=== PATIENT | female | born 1990 | race Caucasian/White ===

== ENCOUNTER 2018-10-17 13:30 | Emergency (ER) | payer OTHER ==
[~2018-10-17] VITALS: Ht 165.1 cm; Wt 83.2 kg
--- NOTE | 2018-10-17 14:38 | REP ---
Left lower extremity Duplex Doppler venous ultrasound: Real time compression and duplex Doppler interrogation of the left lower extremity deep venous system is performed. The left common femoral, superficial femoral and popliteal veins are fully compressible with transducer pressure and demonstrate normal spontaneous and phasic flow, without evidence of deep venous thrombosis. Impression: No evidence of deep venous thrombosis of the left lower extremity femoral popliteal venous system. Electronically Signed by Jerad Carrasco MD 10/17/2018 02:30 P
[2018-10-17 14:46] LABS: BLOOD UREA NITROGEN 5 MG/DL (7-18); CREATININE FOR GFR 0.54 MG/DL (0.55-1.30); GLOMERULAR FILTRATION RATE > 60.0 (>60); GLUCOSE, FASTING 89 MG/DL (70-100)
[2018-10-17 14:47] LABS: CALCIUM LEVEL 8.8 MG/DL (8.5-10.1); CARBON DIOXIDE LEVEL 25 MEQ/L (21-32); CHLORIDE LEVEL 107 MEQ/L (98-107); POTASSIUM SERUM 3.9 MEQ/L (3.5-5.1); SODIUM LEVEL 139 MEQ/L (136-145)
[2018-10-17 15:00] VITALS: BP 97/52
== END 2018-10-17 15:10 | disposition home or self-care (01) ==
LOC: M ED 13:30
DX: S86.112A Strain of other muscle(s) and tendon(s) of posterior muscle group at lower leg level, left leg, initial encounter (principal); X58.XXXA Exposure to other specified factors, initial encounter; Y92.89 Other specified places as the place of occurrence of the external cause; Z88.8 Allergy status to other drugs, medicaments and biological substances; Z91.048 Other nonmedicinal substance allergy status

== ENCOUNTER 2018-11-21 20:37 | Outpatient (CLI) | payer OTHER ==
[~2018-11-21] VITALS: Ht 165.1 cm; Wt 84.1 kg
[2018-11-21 20:54] VITALS: BP 109/67
[2018-11-21] MEDS ORDERED: ZANTTAB PO (21:19)
[2018-11-21] MEDS ORDERED: ZOFR4TAB16 PO (21:19)
[2018-11-21 21:47] LABS: BASO % 0.2 % (0.0-1.0); EOS # 0.1 10^3/uL (0.0-0.50); EOS % 0.6 % (0.0-3.0); HEMATOCRIT 32.5 % (36.0-47.0); HEMOGLOBIN 10.9 g/dl (12.0-15.5); LYMPH # 3.1 10^3/uL (1.5-6.5); LYMPH % 24.6 % (24.0-44.0); MEAN CORPUSCULAR HEMOGLOBIN 29.1 pg (27.0-33.0); MEAN CORPUSCULAR HGB CONC 33.5 g/dl (32.0-36.5); MEAN CORPUSCULAR VOLUME 86.9 fl (80.0-96.0); MONO # 0.8 10^3/uL (0.0-0.8); NEUTROPHILS # 8.5 10^3/uL (1.8-7.7); NEUTROPHILS % 67.6 % (36.0-66.0); PLATELET COUNT, AUTOMATED 198 10^3/uL (150-450); RED BLOOD COUNT 3.74 10^6/uL (4.00-5.40); WHITE BLOOD COUNT 12.6 10^3/uL (4.0-10.0)
--- NOTE | 2018-11-22 06:54 | HPE ---
DATE OF ADMISSION: 11/21/2018 27-year-old lady 4, para 2, abortio 1, last menstrual period (LMP) 05/19/2018, estimated date of confinement (EDC) 02/23/2019. She is at 26 and 5 weeks of gestation. She fell over the couch yesterday at a barbecue at 11/20/2018 at noon. She has had no contractions, no vaginal loss. kick chart is normal but she came for evaluation. PAST HISTORY: June 2014 at 41 weeks, section, male 7 pounds 4 ounces. Induction of labor, nonreassuring heart tones, at 10 weeks spontaneous . November 2015, repeat lower transverse section male 7 pounds 10 ounces, she went into spontaneous labor before her scheduled section. Risk factors is she has PCOS, obese with a BMI of 30.72, gastroesophageal reflux disease (GERD), and she has got an AGDM1, possibly an AGDM2 with a 1-hour a 50 gram load of 160. LABS: AB positive. HIV negative. Hep negative. RPR negative. Rubella immune. Varicella immune. Pap normal. Urine negative. Gonorrhea and chlamydia negative. 1-hour glucose initially was 112 for a 1 hour 50 gram load was 160. EXAMINATION: No acute distress. Symphysis fundus height is appropriate. Nontender uterus. Four quadrant bowel sounds are noted. No vaginal bleeding or discharge. Betke Kleihauer is negative. Hemoglobin, hematocrit and platelets are within normal limits. Category 1 strip on the nonstress. Ultrasound performed at the bedside JOSE JUAN was 10.89 in all three quadrants, vertex presenting. heart was 160 four limb movement and spontaneous respirations were noted. Urine was 1.025, pH 5, 250 of blood. Temperature 98.7, pulse 102, respirations 16 and blood pressure 109/67. The rest the examination is unremarkable. She is normocephalic, atraumatic. Neck full range of motion. Pupils equal and reactive to light. Distal pulses symmetric. No evidence of deep vein thrombosis (DVT), pulmonary embolism (PE), or superficial phlebitis. No wheezes or rhonchi. No CVA tenderness. Appropriate symphysis fundus height. She has an is incisional scar from her two previous sections. She has no rashes, lesions or pruritus. No arthralgia or myalgia. No joint pain. No complaint of cough, wheeze, or shortness of breath or dyspnea on exertion. No bleeding. Neuro complete. No incontinency, urgency or frequency. No nausea, vomiting, diarrhea or constipation. Diabetic issues presently she is an AGDM2. No gyne history. Past medical history and surgical history is noncontributory. Family history is noncontributory. She does not smoke, drink abuse drugs. She is to a soldier. No domestic violence. In summary we have a 28 and 6 who fell more than 24 hours ago with no consequence, came for evaluation, has an appointment tomorrow. Precautions were given, increasing fluids, pelvic rest of the present time and keep the appointment tomorrow at [address] Soni. All questions were answered. Patient was discharged undelivered. MARISSA
== END 2018-11-21 23:04 | disposition home or self-care (01) ==
LOC: M LDO 20:37
PROVIDERS: ATTEND Obstetrics & Gynecology
DX: O99.89 Other specified diseases and conditions complicating pregnancy, childbirth and the puerperium (principal); M54.5 Low back pain; W08.XXXA Fall from other furniture, initial encounter; Y92.89 Other specified places as the place of occurrence of the external cause; Y93.89 Activity, other specified; Y99.8 Other external cause status; Z3A.26 26 weeks gestation of pregnancy
CPT/HCPCS: 36415; 76815; 85025; 85460; G0378; G0463

== ENCOUNTER 2019-01-20 12:30 | Outpatient (CLI) | payer OTHER ==
[~2019-01-20] VITALS: Ht 165.1 cm; Wt 82.6 kg
[~2019-01-20 12:30] MED LIST: ZANT150T40 PO; ZOFR4TAB16 PO
[2019-01-20] MEDS ORDERED: MAPA500T2 PO (13:01)
== END 2019-01-20 13:44 | disposition home or self-care (01) ==
LOC: M LDO 12:30
PROVIDERS: ATTEND Advanced Practice Midwife
DX: O26.893 Other specified pregnancy related conditions, third trimester (principal); Z3A.35 35 weeks gestation of pregnancy; O99.343 Other mental disorders complicating pregnancy, third trimester; O99.513 Diseases of the respiratory system complicating pregnancy, third trimester; O99.213 Obesity complicating pregnancy, third trimester
CPT/HCPCS: 59025; G0378; G0463

== ENCOUNTER 2019-01-29 17:28 | Outpatient (CLI) | payer OTHER ==
[~2019-01-29] VITALS: Ht 165.1 cm; Wt 83.6 kg
[~2019-01-29 17:28] MED LIST changes: +MAPA500T2 PO
[2019-01-29] MEDS ORDERED: ZANT150T40 PO (18:02)
[2019-01-29] MEDS ORDERED: METF500T13 PO (18:02)
[2019-01-29 18:06] VITALS: BP 125/70
--- NOTE | 2019-01-29 18:56 | IPNPDOC ---
Text Note Date of Service The patient was seen on 01/29/19. NOTE 28YO at 36w3d by sure LMP c/w 6wk US, here c/o LOF since last tuesday and decreased movement since lunch today. Last felt good movement around 11 this morning. Since being in triage has felt several movements. Describes leakage of clear fluid since Tuesday. Cramping on and off since last night. No vb, urinary symptoms, fevers, abd pain, vaginal itching/burning. PNC c/b A2GDM on metformin PMH PP depression, obesity, childhood asthma OBHx - CS x2, SAB x1. Scheduled for RLTCS/BTL on Aug GYNHx non-contrib Meds PNV, metformin, zantac, zoloft ALL benadryl, adhesive Vitals wnl Gen WDWN, NAD. Resting comfortably in bed Abd soft non-tender (Chap RN Oriana) Spec: cervix closed, neg pooling/valsalva. No bleeding Ferning/nitrazine negative NST: overall reassuring with mod sahil, pos accels, one decel during repositioning that spontaneously recovered [place]: irreg ctx TAUS: SIUP, cephalic, +FCA, +FM, +breathing, MVP 5.8cm. BPP 8/8 A/P: False labor, no e/o SROM or labor with neg nitrazine/ferning and cervix closed on speculum. DFM, reassuring status overall with a single decel during repositioning but modified BPP 8/8. Given her status and modified BPP 8/8, no indication for delivery currently. -Return precautions discussed -Continue all meds -Keep f/u appts this week Tue/ -RLTCS/BTL scheduled for Jan -Med rec completed MD BERE Finn TONI M. MD Jan 29, 2019 18:56
== END 2019-01-29 18:49 | disposition home or self-care (01) ==
LOC: M LDO 17:28
PROVIDERS: ATTEND General Practice
DX: O47.03 False labor before 37 completed weeks of gestation, third trimester (principal); O36.8130 Decreased fetal movements, third trimester, not applicable or unspecified; Z3A.36 36 weeks gestation of pregnancy
CPT/HCPCS: 59025; 76815; G0378; G0463

== ENCOUNTER 2019-02-11 16:26 | Outpatient (CLI) | payer OTHER ==
[~2019-02-11] VITALS: Ht 165.1 cm; Wt 83.7 kg
[~2019-02-11 16:26] MED LIST changes: +METF500T13 PO
[2019-02-11 16:47] VITALS: BP 116/64
[2019-02-11] MEDS ORDERED: WELL100T2 PO (16:49)
--- NOTE | 2019-02-12 08:17 | HPE ---
DATE OF ADMISSION: This is a 27-year-old 4, para 2, abortio 1, last menstrual period (LMP) 05/19/2018, estimated date of confinement (EDC) 02/23/2019, has had no movement since last evening, came in for assessment. Her risk factors is she has had two previous sections, She is a gestational diabetes mellitus (GDM) 2 on metformin, Methicillin-resistant Staphylococcus aureus (MRSA) positive times two, body mass index (BMI) of 30.72 and she had a history of depression on Zoloft. PAST HISTORY: 1. 2014 at 41 weeks, section, male 7 pounds 4 ounces, nonreassuring heart tones after induction of labor. 2. 2011 at 10 weeks, spontaneous . 3. 2016 repeat lower section at 39 weeks, male 7 pounds 10 ounces. LABORATORIES: Labs are AB positive. HIV negative. Hep negative. RPR negative. Rubella immune. Varicella immune. Urine negative. Gonorrhea and chlamydia negative. 1-hour glucose on the early 12-week visit was 112. At the 28 week visit it was 160. Her 3-hour GTT her fasting was 95, her 1 hour was 215, her 2-hour was 185 and at 3 hours 120. She is Group B Streptococcus (GBS) negative. On examination no acute distress. Category 1 strip. No contractions, 38 weeks, symphysis fundus height, four quadrant bowel sounds are noted. No vaginal loss or bleeding. Cervix is posterior, 1 cm thick, -3 station with unengaged head. Her blood pressure 116/64, respirations are 18, pulse is 95 and temperature 97.5. Urine 1.005, pH 7, negative. Our plan is to do an NST, followup appointment at the office. She has repeat section on February 19. She has no indication at present time for immediate section. Precautions were given and instructions to bring her passport when she comes. The patient was discharged undelivered. All questions were answered.
[2019-02-12] MEDS ORDERED: BUPR15TA PO (10:06)
== END 2019-02-11 17:30 | disposition home or self-care (01) ==
LOC: M LDO 16:26
PROVIDERS: ATTEND Obstetrics & Gynecology
DX: O36.8130 Decreased fetal movements, third trimester, not applicable or unspecified (principal); Z3A.38 38 weeks gestation of pregnancy
CPT/HCPCS: 59025; G0378; G0463

== ENCOUNTER 2019-02-19 05:55 | Inpatient (IN) | payer OTHER ==
[2019-02-19] VITALS (8 sets, daily range): BP systolic 100–129; BP diastolic 54–79
[~2019-02-19] VITALS: Ht 165.1 cm; Wt 83.4 kg
[~2019-02-19 05:55] MED LIST changes: +BUPR15TA PO; +WELL100T2 PO
[2019-02-19] MEDS ORDERED: ZOFR4TAB16 PO (06:28)
[2019-02-19] MEDS ORDERED: LACTATED RINGER'S 1000 ML IV STA (07:08)
[2019-02-19 07:19] LABS: HEMATOCRIT 34.8 % (36.0-47.0); HEMOGLOBIN 11.7 g/dl (12.0-15.5); MEAN CORPUSCULAR HEMOGLOBIN 28.5 pg (27.0-33.0); MEAN CORPUSCULAR HGB CONC 33.6 g/dl (32.0-36.5); MEAN CORPUSCULAR VOLUME 84.9 fl (80.0-96.0); PLATELET COUNT, AUTOMATED 183 10^3/uL (150-450); WHITE BLOOD COUNT 11.6 10^3/uL (4.0-10.0)
[2019-02-19] MEDS ORDERED: ceFAZolin SOD 2 GM in IV 1 EA IV ONE (08:00)
[2019-02-19] MEDS ORDERED: BICITRA 30ML SOLN UDC PO ONE (08:00)
[2019-02-19] MEDS ORDERED: ONDANSETRON 4MG/2ML VIAL (J2405) As Ordered ONE ×2 (08:12→10:25)
[2019-02-19] MEDS ORDERED: OXYTOCIN INJ 10 UNITS/ML VIAL (J2590) As Ordered ONE (08:12)
[2019-02-19] MEDS ORDERED: dexameTHASONE 4 MG/ML 1ML VIAL (J1100) As Ordered ONE (08:12)
[2019-02-19] MEDS ORDERED: KETOROLAC 60 MG/2 ML VIAL (J1885) As Ordered ONE (08:12)
[2019-02-19] MEDS ORDERED: fentaNYL 100 MCG/2 ML INJECTION (J3010) As Ordered ONE (08:13)
[2019-02-19] MEDS ORDERED: MORPHINE PRES-FREE INJ 10 MG/10 ML VIAL (J2274) As Ordered ONE (08:13)
[2019-02-19] MEDS ORDERED: ONDANSETRON 4MG/2ML VIAL (J2405) IV PRN ×2 (08:35→10:15)
[2019-02-19] MEDS ORDERED: diphenhydrAMINE INJ 50MG/ML VIAL (J1200) IV PRN ×2 (08:35→10:15)
[2019-02-19] MEDS ORDERED: NALOXONE INJ 0.4 MG/1 ML VIAL (J2310) IV PRN ×2 (08:35)
[2019-02-19] MEDS ORDERED: NALBUPHINE HCL 10 MG/ML AMP (J2300) IV PRN ×2 (08:35→10:15)
[2019-02-19] MEDS ORDERED: buPROPion **XL** TABLET 150MG (WELLBUTRIN XL) PO SCH (09:00)
[2019-02-19] MEDS ORDERED: ePHEDrine SULFATE 25 MG/5 ML(5MG/ML) SYRINGE As Ordered ONE (09:08)
[2019-02-19] MEDS ORDERED: PHENYLephrine HCL 500 MCG/5 ML (100MCG/ML) SYRINGE (J2370) As Ordered ONE (09:08)
[2019-02-19] MEDS ORDERED: OXYTOCIN 30 UNITS IN 0.9% NaCl 500ML IV BAG (J2590) As Ordered ONE (09:47)
[2019-02-19] MEDS ORDERED: OXYTOCIN DRIP 30 UNITS in IV 1 EA IV SCH (09:47)
[2019-02-19] MEDS ORDERED: PERCOCET 5MG/325MG TAB PO PRN (10:00)
[2019-02-19] MEDS ORDERED: PROMETHAZINE 25 MG TAB PO PRN (10:00)
[2019-02-19] MEDS ORDERED: RHOGAM 300 MCG (1500 IU) INJ (J2790) IM SCH (10:00)
[2019-02-19] MEDS ORDERED: MEASLES,MUMPS,RUBELLA VACCINE INJ (MMR-II) (90707) SC SCH (10:00)
[2019-02-19] MEDS ORDERED: LR 1,000 ML IV SCH (10:15)
[2019-02-19] MEDS ORDERED: fentaNYL 100 MCG/2 ML INJECTION (J3010) IV PRN (10:15)
[2019-02-19] MEDS: METOCLOPRAMIDE INJ 10MG/2ML VIAL (J2765) IV PRN ×2 (12:12→19:28)
[2019-02-19] MEDS ORDERED: SERT50TA29 PO (13:43)
[2019-02-19] MEDS ORDERED: BUPR-332 PO (13:43)
[2019-02-19] MEDS: KETOROLAC 30 MG/ML VIAL (J1885) IV SCH ×2 (14:34→21:04)
[2019-02-19] MEDS: buPROPion **XL** TABLET 150MG (WELLBUTRIN XL) PO SCH (21:03)
[2019-02-20 02:00] VITALS: BP 100/50
[2019-02-20] MEDS: KETOROLAC 30 MG/ML VIAL (J1885) IV SCH (02:21)
[2019-02-20 05:57] VITALS: BP 106/58
[2019-02-20 07:26] LABS: HEMATOCRIT 28.9 % (36.0-47.0); MEAN CORPUSCULAR HEMOGLOBIN 28.3 pg (27.0-33.0); MEAN CORPUSCULAR HGB CONC 32.5 g/dl (32.0-36.5); PLATELET COUNT, AUTOMATED 134 10^3/uL (150-450); RED BLOOD COUNT 3.32 10^6/uL (4.00-5.40)
--- NOTE | 2019-02-20 07:41 | IPNPDOC ---
Progress Note Date of Service: Feb 20, 2019 Progress Note Crystal is a 28 yo female who is POD#1 s/p uncomplicated, scheduled RLTCS with BTL yesterday morning. She is currently recovering on the oneill. She had some nausea and vomiting last night after eating [employer] but otherwise did well overnight. Crystal reports feeling better this AM. Nausea has improved. She was able to tolerate toast this morning without vomiting. Her pain is well controlled. She is ambulating without issues. Maldonado catheter still in place. Vitals - VSS, normotensive, afebrile, non tachycardic General - AAOX3, sitting up in bed, NAD Abdomen - Fundus firm at U-2. No fundal tenderness. Bandage removed over incision. Incision is clean/dry/intact. Steri strips in place. minimal tenderness to palpation. Extremities - SCDs in place. No edema Urine output - Borderline low, likely secondary to 2000ml emesis yesterday afternoon after eating Cony[employer]. ~250ml of urine in maldonado bag at bedside this AM. Labs: Post op H/H pending. Crystal is doing well this and is making an appropriate recovery. Nausea has improved. Continue regular diet, ambulation, and IS use. Continue routine care. Will order abdominal binder. Remove maldonado and monitor for DTV this AM. Anticipate DC home tomorrow. Yvonne Cerna DO VS, I&O, 24H, Fishbone Vital Signs/I&O Vital Signs Date Time Temp Pulse Resp B/P (MAP) Pulse Ox O2 Delivery O2 Flow Rate FiO2 02/20/19 05:57 99.7 85 16 106/58 (74) 97 I&O- Last 24 Hours up to 6 AM 02/20/19 06:00 Intake Total 4000 ml Output Total 3575 ml Balance 425 ml Laboratory Data 24H LABS Laboratory Tests 2 02/19/19 10:13: Serology Scanned Report Hepatitis B Testing CBC/BMP YVONNE CERNA DO Feb 20, 2019 07:41
[2019-02-20 07:51] LABS: HEMOGLOBIN 9.4 g/dl (12.0-15.5)
[2019-02-20] MEDS: PRENATAL VITAMINS CHEWABLE TABLET PO SCH (08:22)
[2019-02-20] MEDS: buPROPion **XL** TABLET 150MG (WELLBUTRIN XL) PO SCH ×2 (08:22→20:57)
[2019-02-20 10:01] VITALS: BP 107/61
[2019-02-20] MEDS: IBUPROFEN 800 MG TAB PO SCH ×2 (10:55→18:48)
[2019-02-20 14:19] VITALS: BP 111/57
[2019-02-20] MEDS ORDERED: DOCUSATE SODIUM 100 MG CAP PO PRN (15:30)
--- NOTE | 2019-02-20 17:08 | RO ---
DATE OF PROCEDURE: 02/19/2019 PREPROCEDURE DIAGNOSIS: History of section times two, no desire for trial of labor after (TOLAC), and satisfied parity. POSTPROCEDURE DIAGNOSIS: History of section times two, no desire for trial of labor after , and satisfied parity. PROCEDURE: Repeat low transverse section with bilateral tubal ligation. SURGEON: Dr. Carlos A Soni LOAN APPROVER: Marlyn Dowell CNM, whose assistance with visualization, retraction, and delivery of the baby was essential to the case. ANESTHESIA: Spinal. FLUIDS: 1300 mL lactated Ringer's (LR). URINE OUTPUT: 100 mL. ESTIMATED BLOOD LOSS: 500 mL. COMPLICATIONS: None. ANTIBIOTICS: 2 grams of Ancef 30 minutes before skin incision. OPERATIVE FINDINGS: A viable female found and delivered in direct occiput posterior (OP) presentation. scores were 9 and 9 and the weight was 3600 grams or 7 pounds 15 ounces. DESCRIPTION OF PROCEDURE: The risks, benefits, indications and alternatives of the procedure were reviewed with the patient and informed consent was obtained. The patient was taken to the operating room where spinal anesthesia was obtained without difficulty. She was then prepped and draped in the usual sterile fashion in the dorsal supine position. A surgical time-out was then performed in which the patient's identify and planned procedure were verified with the operative team. A Cummings catheter was placed previously to drain the bladder. A Pfannenstiel skin incision was then made with a scalpel and carried through to the underlying layer of fascia using Bovie electrocautery. The fascia was incised in the midline, and the incision was extended laterally with Whitt scissors. The superior aspect of the fascial incision was grasped with Livia clamps, elevated, and the underlying rectus muscles were dissected off with a scalpel and with Whitt scissors. Attention was then turned to the inferior aspect of this incision, which in a similar fashion was grasped, tented up with Livia clamps, and the rectus muscles were dissected off with Whitt scissors. The rectus muscles were then at the midline. The peritoneum was identified and entered digitally. The peritoneal incision was then extended horizontally and superiorly with good visualization of the bladder. Bladder blade was then inserted into the abdomen. The vesicouterine peritoneum was then identified and entered sharply with the scalpel. This incision was then extended laterally and a bladder flap was created digitally. The lower uterine segment was noted to be very thin. The lower uterine segment was then incised in a transverse fashion with a scalpel. The uterine incision was then extended manually. The amniotic sac was then artificially ruptured and it was productive of clear fluid. The infant was then found in cephalic direct occiput posterior (OP) presentation. The infant was then delivered through the hysterotomy site without difficulty followed by the remainder of the body. The nose and mouth were then suctioned with a bulb syringe and the cord was then doubly clamped and cut. The infant was then handed off to the awaiting pediatricians. The placenta was then removed manually. The uterus was then exteriorized and cleared of all clots and debris. The uterine incision was then repaired with #0 Monocryl suture in a running locked fashion. A second layer of #0 Monocryl was then used to imbricate the hysterotomy in a horizontal fashion. Inspection of the hysterotomy revealed excellent hemostasis. The posterior cul-de-sac was then irrigated to good effect. Attention was then turned to the patient's fallopian tubes, which were identified bilaterally. The right fallopian tube was then grasped at the isthmic portion with a Lowndes clamp and the underlying mesosalpinx was dissected away using Bovie electrocautery. Using a #0 plain gut suture, the fallopian tube segment was then suture ligated on both sides, and the midline portion of the fallopian tube segment was then transected, amputated, and sent to pathology. An identical procedure was then performed on the patient's left fallopian tube. Thus, tubal sterilization was completed via the [place] method. Inspection of the operative sites of the fallopian tubes revealed excellent hemostasis. The uterus was then returned to the abdomen, and the hysterotomy was again inspected and found to be hemostatic. The fallopian tube operative sites were inspected as well and were also hemostatic. The paracolic gutters were then inspected and cleared of all clots and debris. The bladder blade was then removed from the abdomen. The rectus muscles were then loosely approximated using #3-0 Vicryl suture. The fascia was then closed with #0 Vicryl suture in a running fashion. The subcutaneous fat was then closed with #3-0 Vicryl suture in a running fashion. The skin was then closed with #4-0 Monocryl suture in a subcuticular fashion. The incision was then dressed with Steri-Strips and a pressure dressing was applied. At the completion of the case, a bimanual exam was performed, which revealed good uterine tone and minimal vaginal bleeding. The patient tolerated the procedure well. Sponge, lap, instrument and needle counts were correct times three. The patient was taken to the recovery room in stable condition. MARISSA
[2019-02-20 18:00] VITALS: BP 110/55
[2019-02-20] MEDS: PERCOCET 5MG/325MG TAB PO PRN (18:04)
[2019-02-20 22:00] VITALS: BP 97/52
[2019-02-21 02:00] VITALS: BP 115/70
[2019-02-21] MEDS: PERCOCET 5MG/325MG TAB PO PRN ×2 (02:09→08:36)
[2019-02-21] MEDS: IBUPROFEN 800 MG TAB PO SCH ×2 (03:01→10:59)
[2019-02-21 06:00] VITALS: BP 105/58
--- NOTE | 2019-02-21 07:13 | OBDS ---
[facility] Obstetrical Discharge Sum. Obstetrical Discharge Summary Date: Feb 21, 2019 Time: 06:58 : 4 Term: 3 Pre-term: 0 Abortions: 1 Livin VDRL: Non-Reactive Rh: Positive Rubella: Immune Delivery 19 February, RLTCS with tubal ligation Infant Sex: Female Anesthesia: Regional Anesthesia Episiotomy n/a A/P, Post Course List any complications Admission diagnosis: h/o prior , satisfied parity, term gestation. Discharge diagnosis: agustina, s/p RLTCS with Bilateral tubal ligation Condition at Discharge: stable Discharge Instructions: Keep wound clean and dry, remove steristrips if they don't fall off in 2 weeks. Activity: walking ok. Avoid lifting anything greater than 20lbs for 1 month after surgery. vaginal rest for 6 weeks. no tub baths for 1 month after surgery. Showers are OK. No swimming for 1 month after surgery. Diet: regular Medications: Available for pickup driver at the [facility] oxycodon/acetaminophen 5/325mg take 1-2 tabs by mouth as needed every 4-6 hours for pain not controlled by ibuprofen. do not take tylenol at same time as this medication because it also contains acetaminophen. Colace: 100mg take one tablet a needed twice a day to prevent constipation ibuprofen 800mg take one table with breakfast, lunch, and dinner first week after surgery then use as needed. ever 8 hours for pain. Follow-up: [normal 6-8 week /postoperative visit], october schedule 2 week postop wound check as desired with Dr. Soni Other: N/A YVONNE CHARLES MD Feb 21, 2019 07:13
--- NOTE | 2019-02-21 07:40 | IPNPDOC ---
Progress Note Date of Service: Feb 21, 2019 Day#: 2 Progress Note SUBJECT: pt is a 28-year-old 4 now Para 3-0-1-3 status post uncomplica darlin RLTCS with tubal ligation at 39+ weeks' on 19 February 2019 of a [female] [7] pounds [15] ounces doing well /postoperative day # [2]. She has been ambulating, voiding spontaneously without issue and tolerating regular diet. Bottle feeding without issue. Breasts bilateral full. no erythema or focal tenderness, we reviewed engorgement precautions/treatment. Reports lochia is [normal]. Patient is ambulating well. Denies any pain. Voiding and stooling without difficulty. OBJECTIVE: VITAL SIGNS: Within normal limits, afebrile. Alert and oriented times three. Breath sounds clear to auscultation. Heart rate: Regular rate and rhythm, no murmurs, rubs or gallops. Abdomen: Fundus firm at U-3. Soft, NTTP. [Minimal] lochia. ASSESSMENT: pt is a 28-year-old 4 now Para 3-0-1-3 status post uncomplicated RLTCS with tubal ligation doing well on day [2]. Vitals within normal limits, afebrile, hemodynamically stable with no evidence of infection. PLAN: 1. Discharge to home today. 2. roxicet and Motrin for pain. 3. Encourage ambulation-bottle feeding. 4. tubal ligation for contraception. 5. Routine PP visit in 6 -8weeks in clinic. May have a 2week postoperative wound check with Dr. Yvonne Soni. 6. Discussed return precautions at length. wound care. and engorgement treatment/prevention VS, I&O, 24H, Fishbone Vital Signs/I&O Vital Signs Date Time Temp Pulse Resp B/P (MAP) Pulse Ox O2 Delivery O2 Flow Rate FiO2 02/21/19 06:00 99.3 91 16 105/58 (74) 98 I&O- Last 24 Hours up to 6 AM 02/21/19 05:59 Output Total 1275 ml Balance -1275 ml YVONNE CHARLES MD Feb 21, 2019 07:40
[2019-02-21] MEDS: buPROPion **XL** TABLET 150MG (WELLBUTRIN XL) PO SCH (08:36)
[2019-02-21] MEDS: PRENATAL VITAMINS CHEWABLE TABLET PO SCH (08:36)
== END 2019-02-21 11:45 | disposition home or self-care (01) | DRG 785 ==
LOC: M LDI 05:55 → M OBS 12:10
PROVIDERS: ADMIT Obstetrics & Gynecology; ATTEND Obstetrics & Gynecology
PROC: 0UB70ZZ Excision of Bilateral Fallopian Tubes, Open Approach (ICD-10-PCS; 2019-02-19)
PROC: 10D00Z1 Extraction of Products of Conception, Low, Open Approach (ICD-10-PCS; principal; 2019-02-19 08:30)
DX: O34.211 Maternal care for low transverse scar from previous cesarean delivery (principal); Z3A.39 39 weeks gestation of pregnancy; Z37.0 Single live birth; Z30.2 Encounter for sterilization

== ENCOUNTER 2020-09-23 15:28 | Outpatient (CLI) | payer OTHER ==
[~2020-09-23] VITALS: Ht 165.1 cm; Wt 90.5 kg
[~2020-09-23 15:28] MED LIST changes: +BUPR-332 PO; +SERT50TA29 PO; +methylPREDNISolone 1,000 MG, VIAL MATE ADAPTER 1 EACH in NS 250 ML IV ONE
[2020-09-23 15:49] VITALS: BP 124/77
[2020-09-23 17:01] VITALS: BP 140/75
== END 2020-09-23 17:03 | disposition home or self-care (01) ==
LOC: M INFU 15:28
PROVIDERS: ATTEND Psychiatry & Neurology Neurology
DX: G35 Multiple sclerosis (principal); Z88.8 Allergy status to other drugs, medicaments and biological substances; Z91.048 Other nonmedicinal substance allergy status
CPT/HCPCS: 96365; J2930

== ENCOUNTER 2020-09-24 15:11 | Outpatient (CLI) | payer OTHER ==
[~2020-09-24] VITALS: Ht 165.1 cm; Wt 90.0 kg
[~2020-09-24 15:11] MED LIST changes: -methylPREDNISolone 1,000 MG, VIAL MATE ADAPTER 1 EACH in NS 250 ML IV ONE
[2020-09-24 15:26] VITALS: BP 109/59
[2020-09-24] MEDS ORDERED: methylPREDNISolone 1,000 MG, VIAL MATE ADAPTER 1 EACH in NS 250 ML IV ONE (15:30)
[2020-09-24 16:25] VITALS: BP 111/60
== END 2020-09-24 16:24 | disposition home or self-care (01) ==
LOC: M INFU 15:11
PROVIDERS: ATTEND Psychiatry & Neurology Neurology
DX: G35 Multiple sclerosis (principal)
CPT/HCPCS: 96365; J2930

== ENCOUNTER 2020-09-25 15:35 | Outpatient (CLI) | payer OTHER ==
[~2020-09-25] VITALS: Ht 165.1 cm; Wt 90.0 kg
[~2020-09-25 15:35] MED LIST changes: +methylPREDNISolone 1,000 MG, VIAL MATE ADAPTER 1 EACH in NS 250 ML IV ONE
[2020-09-25 15:40] VITALS: BP 133/74
== END 2020-09-25 16:52 | disposition home or self-care (01) ==
LOC: M INFU 15:35
PROVIDERS: ATTEND Psychiatry & Neurology Neurology
DX: G35 Multiple sclerosis (principal); Z88.8 Allergy status to other drugs, medicaments and biological substances; Z91.048 Other nonmedicinal substance allergy status
CPT/HCPCS: 96365; J2930

== ENCOUNTER 2020-09-26 15:40 | Outpatient (CLI) | payer OTHER ==
[~2020-09-26] VITALS: Ht 165.1 cm; Wt 90.0 kg
[2020-09-26 15:50] VITALS: BP 134/86
[2020-09-26 17:04] VITALS: BP 126/82
== END 2020-09-26 17:05 | disposition home or self-care (01) ==
LOC: M INFU 15:40
PROVIDERS: ATTEND Psychiatry & Neurology Neurology
DX: G35 Multiple sclerosis (principal); Z88.8 Allergy status to other drugs, medicaments and biological substances; Z91.048 Other nonmedicinal substance allergy status
CPT/HCPCS: 96365; J2930

== ENCOUNTER 2020-09-27 09:19 | Outpatient (CLI) | payer OTHER ==
[~2020-09-27] VITALS: Ht 165.1 cm; Wt 90.5 kg
[~2020-09-27 09:19] MED LIST changes: -methylPREDNISolone 1,000 MG, VIAL MATE ADAPTER 1 EACH in NS 250 ML IV ONE
[2020-09-27 09:52] VITALS: BP 118/76
[2020-09-27] MEDS ORDERED: methylPREDNISolone 1,000 MG, VIAL MATE ADAPTER 1 EACH in NS 250 ML IV ONE (10:00)
[2020-09-27] MEDS ORDERED: ONDANSETRON 4MG/2ML VIAL As Ordered ONE (11:40)
[2020-09-27] MEDS ORDERED: ONDANSETRON 4MG/2ML VIAL IV ONE (11:40)
== END 2020-09-27 11:45 | disposition home or self-care (01) ==
LOC: M OPCLI4PV 09:19 → M MSPAV 09:20 → M OPCLI4PV 11:45
PROVIDERS: ATTEND Psychiatry & Neurology Neurology
DX: G35 Multiple sclerosis (principal); Z88.8 Allergy status to other drugs, medicaments and biological substances; Z91.048 Other nonmedicinal substance allergy status
CPT/HCPCS: 96365; 96375; J2405; J2930

== ENCOUNTER 2020-12-25 07:19 | Outpatient (CLI) | payer OTHER ==
[2020-12-25] VITALS (7 sets, daily range): BP systolic 114–133; BP diastolic 60–79
[~2020-12-25] VITALS: Ht 167.6 cm; Wt 90.0 kg
[~2020-12-25 07:19] MED LIST changes: +ACETAMINOPHEN TAB 650MG DOSE (2X325MG) PO ONE; +diphenhydrAMINE 25MG CAP PO ONE; +methylPREDNISolone 125MG 2ML VIAL IV ONE
[2020-12-25] MEDS ORDERED: OCRELIZUMAB 300 MG in NS 250 ML IV ONE (07:30)
== END 2020-12-25 11:10 | disposition home or self-care (01) ==
LOC: M INFU 07:19
PROVIDERS: ATTEND Psychiatry & Neurology Neurology
DX: G35 Multiple sclerosis (principal)
CPT/HCPCS: 96375; 96413; 96415; J2350; J2930

== ENCOUNTER 2021-03-05 13:43 | Emergency (ER) | payer OTHER ==
[~2021-03-05] VITALS: Ht 167.6 cm; Wt 81.0 kg
[~2021-03-05 13:43] MED LIST changes: -ACETAMINOPHEN TAB 650MG DOSE (2X325MG) PO ONE; -diphenhydrAMINE 25MG CAP PO ONE; -methylPREDNISolone 125MG 2ML VIAL IV ONE
[2021-03-05] MEDS ORDERED: GABA-283 (13:53)
[2021-03-05] MEDS ORDERED: DULO1CAP5 (13:53)
[2021-03-05] MEDS ORDERED: DULO1CAP6 (13:53)
[2021-03-05] MEDS ORDERED: ASPI-584 (13:53)
[2021-03-05] MEDS ORDERED: ESZO1TAB8 (13:53)
[2021-03-05] MEDS ORDERED: LORA-674 (13:53)
[2021-03-05] MEDS ORDERED: AMPH1CAP16 (13:53)
[2021-03-05] MEDS ORDERED: PROP10TA56 (13:53)
[2021-03-05] MEDS ORDERED: HYDR-4570 (13:53)
[2021-03-05 20:51] LABS: BASO # 0.1 10^3/uL (0.0-0.2); BASO % 0.5 % (0.0-1.0); EOS # 0.1 10^3/uL (0.0-0.5); EOS % 1.4 % (0.0-3.0); HEMATOCRIT 36.9 % (36.0-47.0); LYMPH # 2.5 10^3/uL (1.5-5.0); LYMPH % 27.3 % (24.0-44.0); MEAN CORPUSCULAR HGB CONC 32.5 g/dl (32.0-36.5); MEAN CORPUSCULAR VOLUME 86.2 fl (80.0-96.0); MONO # 0.8 10^3/uL (0.0-0.8); MONO % 9.1 % (2.0-8.0); NEUTROPHILS # 5.7 10^3/uL (1.5-8.5); NEUTROPHILS % 61.3 % (36.0-66.0); PLATELET COUNT, AUTOMATED 209 10^3/uL (150-450); RED BLOOD COUNT 4.28 10^6/uL (4.00-5.40); WHITE BLOOD COUNT 9.3 10^3/uL (4.0-10.0)
[2021-03-05] MEDS ORDERED: methylPREDNISolone 1,000 MG, VIAL MATE ADAPTER 1 EACH in NS 250 ML IV ONE (21:20)
[2021-03-05] MEDS ORDERED: SODIUM CHLORIDE 0.9% INJ 10 ML SYR IV PRN (21:25)
[2021-03-05 21:28] LABS: ALBUMIN 3.3 GM/DL (3.2-5.2); ALT/SGPT 20 U/L (12-78); BILIRUBIN,DIRECT < 0.1 MG/DL (0.0-0.2); BILIRUBIN,TOTAL 0.3 MG/DL (0.2-1.0); BLOOD UREA NITROGEN 11 MG/DL (7-18); C REACTIVE PROTEIN QUANTITATIV 0.42 MG/DL (0.00-0.30); CALCIUM LEVEL 8.4 MG/DL (8.5-10.1); CARBON DIOXIDE LEVEL 28 MEQ/L (21-32); CHLORIDE LEVEL 108 MEQ/L (98-107); CREATININE FOR GFR 0.69 MG/DL (0.55-1.30); FREE T4 0.97 NG/DL (0.76-1.46); GLOMERULAR FILTRATION RATE > 60.0 (>60); GLUCOSE, FASTING 94 MG/DL (70-100); MAGNESIUM LEVEL 2.2 MG/DL (1.8-2.4); POTASSIUM SERUM 3.8 MEQ/L (3.5-5.1); SODIUM LEVEL 141 MEQ/L (136-145); THYROID STIMULATING HORMONE 0.759 uIU/ML (0.358-3.740); TOTAL PROTEIN 6.3 GM/DL (6.4-8.2)
[2021-03-05] MEDS ORDERED: PROHANCE 279.3MG/ML 15ML VIAL As Ordered ONE (21:31)
--- NOTE | 2021-03-05 22:09 | REPVR ---
PROCEDURE INFORMATION: Exam: XR Chest Exam date and time: 03/05/2021 8:51 PM Age: 30 years old Clinical indication: Other: Ms flare-up; Additional info: Inc ms symptoms TECHNIQUE: Imaging protocol: XR of the chest. Views: 2 views. COMPARISON: No relevant prior studies available. FINDINGS: Tubes, catheters and devices: Right IJ central venous line terminates in the SVC. Lungs: Clear. No consolidation. Pleural spaces: No pleural effusion. No pneumothorax. Heart/Mediastinum: Unremarkable. No cardiomegaly. Bones/joints: Unremarkable. IMPRESSION: No acute findings. Electronically signed by: Sharath Borja On 03/05/2021 22:09:04 PM
--- NOTE | 2021-03-05 22:16 | REPVR ---
PROCEDURE INFORMATION: Exam: MR Head Without and With Contrast Exam date and time: 03/05/2021 9:51 PM Age: 30 years old Clinical indication: Weakness, extremity; Bilateral; Additional info: Weakness/ ? ms flare TECHNIQUE: Imaging protocol: MR of the head without and with intravenous contrast. Contrast material: PROHANCE; Contrast volume: 16 ml; Contrast route: INTRAVENOUS (IV); COMPARISON: No relevant prior studies available. FINDINGS: Brain: There are multiple linear subcortical and pericallosal T2 hyperintense white matter lesions consistent with history of multiple sclerosis. No evidence of an acute infarction. No midline shift or mass effect. No mass or abnormal contrast enhancement. Cerebral ventricles: Normal. No ventriculomegaly. Bones/joints: Unremarkable. Paranasal sinuses: Normal as visualized. No acute sinusitis. Mastoid air cells: Normal as visualized. No mastoid effusion. Soft tissues: Unremarkable. IMPRESSION: 1. Scattered white matter plaques consistent with given history of multiple sclerosis. No signs of active demyelination. 2. No acute findings. Electronically signed by: Sharath Borja On 03/05/2021 22:15:49 PM
[2021-03-05] MEDS ORDERED: ACETAMINOPHEN 500 MG TAB PO ONE (22:45)
[2021-03-05] MEDS ORDERED: PRED10TA2 PO (23:57)
[2021-03-06 00:14] VITALS: BP 129/71
== END 2021-03-06 00:15 | disposition home or self-care (01) ==
LOC: M ED 13:43
DX: G35 Multiple sclerosis (principal); R42 Dizziness and giddiness; R20.2 Paresthesia of skin; R51.9 Headache, unspecified; E11.9 Type 2 diabetes mellitus without complications; J45.909 Unspecified asthma, uncomplicated; F32.9 Major depressive disorder, single episode, unspecified; F41.9 Anxiety disorder, unspecified; Z88.8 Allergy status to other drugs, medicaments and biological substances; Z91.048 Other nonmedicinal substance allergy status; Z79.899 Other long term (current) drug therapy
CPT/HCPCS: 70553; 71046; 80048; 80076; 81001; 83605; 83735; 84439; 84443; 85025; 86140; 87040; 87798; 96365; 99284; A9576; J1642; J2930

== ENCOUNTER 2021-03-23 17:53 | Outpatient (CLI) | payer OTHER ==
[~2021-03-23 17:53] MED LIST changes: +AMPH1CAP16; +ASPI-584; +DULO1CAP5; +DULO1CAP6; +ESZO1TAB8; +GABA-283; +HYDR-4570; +LORA-674; +PRED10TA2 PO; +PROP10TA56
[2021-03-23] MEDS ORDERED: methylPREDNISolone 1,000 MG, VIAL MATE ADAPTER 1 EACH in NS 250 ML IV ONE (20:00)
[2021-03-23 20:45] VITALS: BP 102/69
[2021-03-23] MEDS ORDERED: SODIUM CHLORIDE 0.9% INJ 10 ML SYR IV PRN (22:35)
[2021-03-24 00:34] VITALS: BP 131/71
[2021-03-24] MEDS ORDERED: SODIUM CHLORIDE 0.9% INJ 10 ML SYR IV SCH (09:00)
== END 2021-03-24 00:39 | disposition home or self-care (01) ==
LOC: M OPCLI4PR 17:53 → M MSPAV 17:55 → M OPCLI4PR 03-24 00:39
PROVIDERS: ATTEND Psychiatry & Neurology Neurology
DX: G35 Multiple sclerosis (principal)
CPT/HCPCS: 96365; 96366; J1642; J2930

== ENCOUNTER 2021-03-24 11:17 | Outpatient (CLI) | payer OTHER ==
[~2021-03-24] VITALS: Ht 167.6 cm; Wt 90.0 kg
[~2021-03-24 11:17] MED LIST changes: +SODIUM CHLORIDE 0.9% INJ 10 ML SYR IV SCH
[2021-03-24 11:50] VITALS: BP 121/75
[2021-03-24] MEDS ORDERED: methylPREDNISolone 1,000 MG, VIAL MATE ADAPTER 1 EACH in NS 250 ML IV ONE (12:00)
[2021-03-24 12:50] VITALS: BP 132/81
[2021-03-24] MEDS ORDERED: SODIUM CHLORIDE 0.9% INJ 10 ML SYR IV PRN (12:50)
== END 2021-03-24 13:00 | disposition home or self-care (01) ==
LOC: M INFU 11:17
PROVIDERS: ATTEND Psychiatry & Neurology Neurology
DX: G35 Multiple sclerosis (principal)
CPT/HCPCS: 96365; J1642; J2930

== ENCOUNTER 2021-03-25 13:16 | Outpatient (CLI) | payer OTHER ==
[~2021-03-25] VITALS: Ht 167.6 cm; Wt 90.0 kg
[~2021-03-25 13:16] MED LIST changes: -SODIUM CHLORIDE 0.9% INJ 10 ML SYR IV SCH; +methylPREDNISolone 1,000 MG, VIAL MATE ADAPTER 1 EACH in NS 250 ML IV ONE
[2021-03-25 13:35] VITALS: BP 133/70
[2021-03-25] MEDS ORDERED: SODIUM CHLORIDE 0.9% INJ 10 ML SYR IV PRN (14:10)
[2021-03-25] MEDS: SODIUM CHLORIDE 0.9% INJ 10 ML SYR IV SCH ×2 (14:29→14:30)
[2021-03-25 14:35] VITALS: BP 122/65
== END 2021-03-25 14:50 | disposition home or self-care (01) ==
LOC: M INFU 13:16
PROVIDERS: ATTEND Psychiatry & Neurology Neurology
DX: G35 Multiple sclerosis (principal)
CPT/HCPCS: 96365; 96523; J1642; J2930

== ENCOUNTER 2021-03-26 14:53 | Outpatient (CLI) | payer OTHER ==
[~2021-03-26] VITALS: Ht 167.6 cm; Wt 90.0 kg
[~2021-03-26 14:53] MED LIST changes: +SODIUM CHLORIDE 0.9% INJ 10 ML SYR IV PRN; -methylPREDNISolone 1,000 MG, VIAL MATE ADAPTER 1 EACH in NS 250 ML IV ONE
[2021-03-26 14:55] VITALS: BP 121/78
[2021-03-26] MEDS ORDERED: methylPREDNISolone 1,000 MG, VIAL MATE ADAPTER 1 EACH in NS 250 ML IV ONE (15:30)
[2021-03-26 16:15] VITALS: BP 135/80
[2021-03-27] MEDS ORDERED: SODIUM CHLORIDE 0.9% INJ 10 ML SYR IV SCH (09:00)
== END 2021-03-26 16:20 | disposition home or self-care (01) ==
LOC: M INFU 14:53
PROVIDERS: ATTEND Psychiatry & Neurology Neurology
DX: G35 Multiple sclerosis (principal)
CPT/HCPCS: 96365; 96523; J1642; J2930

== ENCOUNTER 2021-03-27 14:56 | Outpatient (CLI) | payer OTHER ==
[~2021-03-27] VITALS: Ht 167.6 cm; Wt 90.0 kg
[~2021-03-27 14:56] MED LIST changes: +SODIUM CHLORIDE 0.9% INJ 10 ML SYR IV SCH; +methylPREDNISolone 1,000 MG, VIAL MATE ADAPTER 1 EACH in NS 250 ML IV ONE
[2021-03-27 15:12] VITALS: BP 127/79
[2021-03-27 16:20] VITALS: BP 135/80
== END 2021-03-27 16:20 | disposition home or self-care (01) ==
LOC: M INFU 14:56
PROVIDERS: ATTEND Psychiatry & Neurology Neurology
DX: G35 Multiple sclerosis (principal)
CPT/HCPCS: 96365; J1642; J2930

== ENCOUNTER 2021-04-15 15:56 | Outpatient (CLI) | payer OTHER ==
[~2021-04-15] VITALS: Ht 167.6 cm; Wt 90.0 kg
[2021-04-15 15:20] VITALS: BP 141/91
[~2021-04-15 15:56] MED LIST changes: -SODIUM CHLORIDE 0.9% INJ 10 ML SYR IV PRN; -SODIUM CHLORIDE 0.9% INJ 10 ML SYR IV SCH
[2021-04-15] MEDS ORDERED: SODIUM CHLORIDE 0.9% INJ 10 ML SYR IV PRN (16:35)
[2021-04-15 17:00] VITALS: BP 111/67
[2021-04-16] MEDS ORDERED: SODIUM CHLORIDE 0.9% INJ 10 ML SYR IV SCH (09:00)
== END 2021-04-15 17:00 | disposition home or self-care (01) ==
LOC: M INFU 15:56
PROVIDERS: ATTEND Psychiatry & Neurology Neurology
DX: G35 Multiple sclerosis (principal); Z88.8 Allergy status to other drugs, medicaments and biological substances
CPT/HCPCS: 96365; 96523; J1642; J2930

== ENCOUNTER 2021-04-16 11:03 | Outpatient (CLI) | payer OTHER ==
[~2021-04-16] VITALS: Ht 167.6 cm; Wt 90.0 kg
[~2021-04-16 11:03] MED LIST changes: +SODIUM CHLORIDE 0.9% INJ 10 ML SYR IV PRN
[2021-04-16 11:22] VITALS: BP 137/83
[2021-04-16 12:30] VITALS: BP 168/92
[2021-04-17] MEDS ORDERED: SODIUM CHLORIDE 0.9% INJ 10 ML SYR IV SCH (09:00)
== END 2021-04-16 12:30 | disposition home or self-care (01) ==
LOC: M INFU 11:03
PROVIDERS: ATTEND Psychiatry & Neurology Neurology
DX: G35 Multiple sclerosis (principal); Z88.8 Allergy status to other drugs, medicaments and biological substances
CPT/HCPCS: 96365; 96523; J1642; J2930

== ENCOUNTER 2021-04-17 16:08 | Outpatient (CLI) | payer OTHER ==
[~2021-04-17] VITALS: Ht 167.6 cm; Wt 90.0 kg
[~2021-04-17 16:08] MED LIST changes: -SODIUM CHLORIDE 0.9% INJ 10 ML SYR IV PRN; +SODIUM CHLORIDE 0.9% INJ 10 ML SYR IV SCH; -methylPREDNISolone 1,000 MG, VIAL MATE ADAPTER 1 EACH in NS 250 ML IV ONE
[2021-04-17 16:20] VITALS: BP 132/73
[2021-04-17] MEDS ORDERED: SODIUM CHLORIDE 0.9% INJ 10 ML SYR IV PRN (16:25)
[2021-04-17] MEDS ORDERED: methylPREDNISolone 1,000 MG, VIAL MATE ADAPTER 1 EACH in NS 250 ML IV ONE (16:30)
[2021-04-17 17:30] VITALS: BP 138/81
== END 2021-04-17 17:30 | disposition home or self-care (01) ==
LOC: M INFU 16:08
PROVIDERS: ATTEND Psychiatry & Neurology Neurology
DX: G35 Multiple sclerosis (principal); Z88.8 Allergy status to other drugs, medicaments and biological substances; Z91.048 Other nonmedicinal substance allergy status
CPT/HCPCS: 96365; 96523; J1642; J2930

== ENCOUNTER → 2021-04-20 | Outpatient (CLI) | payer OTHER ==
[~2021-04-20] MED LIST changes: +SODIUM CHLORIDE 0.9% INJ 10 ML SYR IV PRN; +methylPREDNISolone 1,000 MG, VIAL MATE ADAPTER 1 EACH in NS 250 ML IV ONE
[2021-04-20 16:35] VITALS: BP 128/73
[2021-04-20 17:50] VITALS: BP 138/78
== END ==
LOC: M INFU 16:23
PROVIDERS: ATTEND Psychiatry & Neurology Neurology
DX: G35 Multiple sclerosis (principal); Z88.8 Allergy status to other drugs, medicaments and biological substances; Z91.048 Other nonmedicinal substance allergy status
CPT/HCPCS: 96365; 96523; J1642; J2930

== ENCOUNTER 2021-04-21 12:46 | Outpatient (CLI) | payer OTHER ==
[~2021-04-21] VITALS: Ht 167.6 cm; Wt 90.0 kg
[2021-04-21 13:05] VITALS: BP 139/71
[2021-04-21 14:00] VITALS: BP 142/72
== END 2021-04-21 14:00 | disposition home or self-care (01) ==
LOC: M INFU 12:46
PROVIDERS: ATTEND Psychiatry & Neurology Neurology
DX: G35 Multiple sclerosis (principal); Z88.8 Allergy status to other drugs, medicaments and biological substances; Z91.048 Other nonmedicinal substance allergy status
CPT/HCPCS: 96365; 96523; J1642; J2930